=== PATIENT | male | born 1980 | race Caucasian/White ===

== ENCOUNTER 2021-05-04 09:49 | Emergency (ER) | payer BC ==
--- OUTSIDE RECORDS SUMMARY | 2021-05-04 09:52 | XMS REPORT | Continuity of Care Document ---
:1980 Author Organization [facility] t Address [address] [place] [address] Care Team Providers Name Role Phone Gee TEIXEIRA Primary Care Physician Unavailable Gee Teixeira Attending Clinician Unavailable Nurse, [facility] Attending Clinician Unavailable Ebravandana PRODUCT BUILDER Attending Clinician EBRAHIM Attending Clinician Unavailable Only, Db Test Attending Clinician Unavailable Mo CROCKER Attending Clinician [place] Attending Clinician Unavailable Hermann TAM Attending Clinician Unavailable Payers Payer Name Policy Type Policy Number Effective Date Expiration Date S ource Problems Condition Condition Condition Status Onset Resolution Last Treating Co mments Source Name Details Category Date Date Treatment Clinician Date No known No known Disease Unive rs active active ity of problems problems [facility] Allergies, Adverse Reactions, Alerts Allergy Allergy Status Severity Reaction(s) Onset Inactive Treating Comm ents Source Name Type Date Date Clinician NO KNOWN Drug Active Univers ALLERGIE Class ity of S [facility] Social History Social Habit Start Date Stop Date Quantity Comments Source Exposure to Not sure [facility] SARS-CoV-2 (event) Medica l Branch Tobacco use and 2018-10-27 2018-10-[address] [facility] exposure 00:00:00 00:00:00 [facility] Sex Assigned At [address] 1980 [facility] 00:00:00 00:00:00 [facility] Smoking Status Start Date Stop Date Source Never smoker [facility] Medications Ordered Filled Start Stop Current Ordering Indication Dosage Frequency Signature Comments Components Source Medication Medication Date Date Medication? Clinician (SIG) Name Name meclizine 2018- Yes [id number] 25mg Take 1 Univers (MEDI-MECLI 10-27 tablet by it y ross HORNER) 25 mg 00:00: mouth [place] tablet 00 every 4 Medical (four) Branch hours as needed for Dizziness or Nausea. meclizine 2019-0 Yes [id number] 25mg Take 1 Univers (MEDI-MECLI 10-27 tablet by it [place]) 25 mg 00:00: mouth [place] tablet 00 every 4 Medical (four) Branch hours as needed for Dizziness or Nausea. Immunizations Ordered Filled Immunization Date Status Comments [facility] e Immunization Name Name SARS-COV-2 COVID-19 2020-06-11 Completed Unive rsity of PFIZER VACCINE 00:00:00 [facility] SARS-COV-2 COVID-19 2020-06-11 Completed Unive rsity of PFIZER VACCINE 00:00:00 [facility] SARS-COV-2 COVID-19 2020-05-18 Completed Unive rsity of PFIZER VACCINE 00:00:00 [facility] SARS-COV-2 COVID-19 2020-05-18 Completed Unive rsity of PFIZER VACCINE 00:00:00 [facility] Vital Signs Vital Name Observation Time Observation Value Comments Source Systolic blood 2021-05-04 14:24:00 117 mm[Hg] Univer sity of pressure [facility] Diastolic blood 2021-05-04 14:24:00 84 mm[Hg] Unive rsity of pressure [facility] Heart rate 2021-05-04 14:24:00 77 /min [facility] Body temperature 2021-05-04 14:24:00 36.67 [facility] Res[facility] rate 2021-05-04 14:24:00 17 /min [facility] Body height 2021-05-04 14:24:00 177.8 cm [facility] Body weight 2021-05-04 14:24:00 92.109 kg [facility] BMI 2021-05-04 14:24:00 29.14 kg/m2 [facility] Oxygen saturation in 2021-05-04 14:24:00 99 /min [facility] Arterial blood by [facility] Pulse oximetry Branch Procedures This patient has no known procedures. Encounters Start End Encounter Admission Attending Care Care Encounter Source Date/Time Date/Time Type Type Clinicians Facility Department ID 2021-03-06 Outpatient Puneet, STLMLC STLMLC [id number] 14:04:51 [facility] [address] [facility] 2021-05-04 2021-05-04 Nurse Nurse, Joe [facility] [id number] Univers 09:15:00 09:35:00 Visit Luis King [facility] [id number] itgracie [facility] [id number] Joe as JOSELITO?BLEA [phone] [address] MEDICAL OFFICE [facility] 2021-05-04 2021-05-04 Outpatient R [facility] [id number] Univers 09:15:00 09:15:00 [id number] [facility] 2021-05-04 2021-05-04 Outpatient R [facility] [id number] Univers 09:15:00 09:15:00 LUIS [facility] 2021-03-02 2021-03-02 Laboratory Only, Ang Db Test [facility] [id number] Univers 10:45:00 11:00:00 Only Mo [facility] [id number] ity [facility] [id number] Joe as JOSELITO?BLEA [phone] [address] OFFICE [facility] 2021-03-02 2021-03-02 Outpatient R [facility] [id number] Univers 10:45:00 10:54:16 LEONEL [facility] 2021-03-02 2021-03-02 Outpatient R [facility] [id number] Univers 10:45:00 10:45:00 [id number] [facility] 2020-06-11 2020-06-11 [facility] [id number] Univers 08:40:00 08:40:00 LISA [facility] 2020-06-09 2020-06-09 Outpatient R [facility] [id number] Univers 14:20:00 14:20:00 [id number] [facility] 2020-06-09 2020-06-09 Outpatient R [facility] [id number] Univers 14:20:00 14:20:00 [facility] 2020-06-09 2020-06-09 [facility] [id number] Univers 11:50:00 11:50:00 [facility] 2020-06-09 2020-06-09 Outpatient [facility] [id number] Univers 11:45:00 11:45:00 [facility] 2020-06-08 2020-06-08 Outpatient YONATAN [facility] [id number] Univers 11:50:00 11:50:00 [facility] 2020-05-18 2020-05-18 Outpatient [facility] [id number] Univers 10:15:00 10:15:00 [facility] Results This patient has no known results.
[2021-05-04] MEDS ORDERED: KETOROLAC 30 MG/ML INJ ONE (10:28)
[2021-05-04] MEDS ORDERED: NA CHLORIDE 0.9% 1,000 ML ONE (10:28)
[2021-05-04] MEDS ORDERED: FAMOTIDINE 20 MG/2 ML VIAL IV ONE (10:28)
[2021-05-04 10:40] LABS: Absolute Lymphocytes (CBC) 1.3 K/uL (0.7-4.9); Hematocrit 43.7 % (39.6-49.0); Lymphocytes % 17.4 % (15.3-44.8); MPV 7.9 fL (7.6-11.3); RBC Red Blood Cell Count 4.91 M/uL (4.33-5.43)
[2021-05-04 10:56] LABS: ALT/SGPT 28 U/L (12-78); AST/SGOT 17 U/L (15-37); Albumin 3.9 g/dL (3.4-5.0); Alkaline Phosphatase 46 U/L (45-117); BUN Blood Urea Nitrogen 20 mg/dL (7-18); Bicarbonate 28 mmol/L (21-32); Bilirubin Total 0.3 mg/dL (0.2-1.0); Glucose Level 105 mg/dL (74-106); Lipase 97 U/L (73-393); Potassium 4.2 mmol/L (3.5-5.1); Protein, Total 7.8 g/dL (6.4-8.2); Sodium Level 139 mmol/L (136-145)
--- NOTE | 2021-05-04 11:11 | RAD REPORT ---
EXAM DESCRIPTION: CTAbdomen Pelvis W Contrast - 05/04/2021 11:00 am CLINICAL HISTORY: ABD PAIN COMPARISON: <Comparisons> TECHNIQUE: CT of the abdomen and pelvis was performed. All CT scans are performed using dose optimization technique as appropriate and may include automated exposure control or mA/KV adjustment according to patient size. FINDINGS: Lower chest: No acute abnormality. Liver: Miniscule low-density lesion in the right hepatic lobe on image 15, series 501 this too small to characterize, likely benign. Biliary: No biliary ductal dilatation. Stomach: No significant focal abnormality. Duodenum: No significant focal abnormality. Pancreas: No significant abnormality. Spleen: No significant abnormality. Adrenal: No suspicious lesions. Kidney/ureter: No hydronephrosis. No renal calculi. Retroperitoneum: No retroperitoneal adenopathy. Vascular: No aneurysm. Bowel: No significant focal abnormality. Normal appendix. Peritoneum: No ascites or free air. Bladder: Grossly unremarkable. Reproductive: No adnexal masses. Bones: No acute fracture. Other: n/a IMPRESSION: No acute intra-abdominal or pelvic finding. Normal appendix.
--- NOTE | 2021-05-04 11:15 | RAD REPORT ---
EXAM DESCRIPTION: US - Abdomen Exam Limited - 05/04/2021 11:08 am CLINICAL HISTORY: EPIGASTRIC PAIN COMPARISON: No comparisons FINDINGS: The gallbladder demonstrates no gallstones. No pericholecystic fluid or gallbladder wall t hickening. The common bile duct is normal measuring 3 mm. The liver demonstrates no findings of intrahepatic biliary dilatation. IMPRESSION: Unremarkable examination.
--- NOTE | 2021-05-04 11:34 | EDPHYS ---
Physician Documentation [facility] Name: Nhan Mcgovern Age: 40 yrs Sex: Male : 1980 Arrival Date: 05/04/2021 Time: 09:54 Bed 18 Private MD: ED Physician Clarence Brothers HPI: 05/04 10:22 This 40 yrs old Male presents to ER via Ambulatory with complaints of Abdominal Pain. pm1 10:22 The patient presents with abdominal pain in the epigastric area. Onset: The pm1 symptoms/episode began/occurred 2 day(s) ago. Associated signs and symptoms: none. Pertinent negatives: nausea, vomiting, and diarrhea, chest pain, shortness of breath. The symptoms are described as vague. Modifying factors: The symptoms are alleviated by the symptoms are aggravated by deep breathing while standing cause the pain to be worse. Severity of pain: in the emergency department the pain is a 3 / 10. The patient has not experienced similar symptoms in the past. The patient has been recently seen at an urgent care, today, for similar complaints, and was sent to the [facility] Emergency Department for further evaluation, for ultrasound of gallbadder. Historical: - Allergies: 10:03 No Known Allergies; ab2 - PMHx: 10:03 None; ab2 - PSHx: 10:03 None; ab2 - Immunization history:: Adult Immunizations up to date, Client reports receiving the 2nd dose of the Covid vaccine. - Social history:: Smoking status: Patient denies any tobacco usage or history of. ROS: 10:22 Constitutional: Negative for fever, chills, and weight loss, Cardiovascular: Negative pm1 for chest pain, palpitations, and edema, Respiratory: Negative for shortness of breath, cough, wheezing, and pleuritic chest pain. 10:22 Back: Negative for injury and pain, MS/Extremity: Negative for injury and deformity, Skin: Negative for injury, rash, and discoloration, Neuro: Negative for headache, weakness, numbness, tingling, and seizure. 10:22 Abdomen/GI: Positive for abdominal pain, of the epigastric area, Negative for nausea, vomiting, and diarrhea. 10:22 All other systems are negative. Exam: 10:22 Constitutional: This is a well developed, well nourished patient who is awake, alert, pm1 and in no acute distress. Head/Face: Normocephalic, atraumatic. 10:22 Back: No spinal tenderness. No costovertebral tenderness. Full range of motion. Skin: Warm, dry with normal turgor. Normal color with no rashes, no lesions, and no evidence of cellulitis. MS/ Extremity: Pulses equal, no cyanosis. Neurovascular intact. Full, normal range of motion. 10:22 Chest/axilla: Exam negative for acute changes, Inspection: normal, Palpation: is normal, no tenderness. 10:22 Cardiovascular: Exam negative for acute changes, Rate: normal, Rhythm: regular, Pulses: no pulse deficits are appreciated, Heart sounds: normal, normal S1and S2. 10:22 Respiratory: Exam negative for acute changes, respiratory distress, shortness of breath, Breath sounds: are clear throughout. 10:22 Abdomen/GI: Inspection: abdomen appears normal, Palpation: soft, in all quadrants, mild abdominal tenderness, in the epigastric area. 10:22 Neuro: Exam negative for acute changes, Orientation: is normal, Mentation: is normal, Motor: is normal, moves all fours. Vital Signs: 10:00 BP 134 / 77; Pulse 68; Resp 17; Temp 98.2(TE); Pulse Ox 99% on R/A; Weight 90.72 kg; ab2 Height 5 ft. 10 in. (177.80 cm); Pain 4/10; 11:35 BP 121 / 78; Pulse 56; Resp 16 S; Pulse Ox 98% on R/A; jd3 10:00 Body Mass Index 28.70 (90.72 kg, 177.80 cm) ab2 MDM: 10:08 Patient medically screened. christelle 10:40 Data reviewed: vital signs. Data interpreted: Pulse oximetry: on room air is 99 %. pm1 Interpretation: normal. 11:33 Counseling: I had a detailed discussion with the patient and/or guardian regarding: the pm1 historical points, exam findings, and any diagnostic results supporting the discharge/admit diagnosis, lab results, radiology results, the need for outpatient follow up, a family practitioner, to return to the emergency department if symptoms worsen or persist or if there are any questions or concerns that arise at home. 11:33 Special discussion: I discussed with the patient the need to follow-up with the pm1 PCP/specialist for the noted incidental finding on X-ray/CT scanning. follow up with GI and or PCP. 05/04 10:22 Order name: CBC with Diff; Complete Time: 10:44 pm1 05/04 10:22 Order name: CMP; Complete Time: 11:09 pm1 05/04 10:22 Order name: Lipase; Complete Time: 11:09 pm1 05/04 10:22 Order name: Abdomen Limited US; Complete Time: 11:24 pm1 05/04 10:22 Order name: CT Abd/Pelvis - IV Contrast Only; Complete Time: 11:14 pm1 05/04 10:22 Order name: IV Saline Lock; Complete Time: 10:30 pm1 05/04 10:22 Order name: Labs collected and sent; Complete Time: 10:30 pm1 Administered Medications: 10:30 Drug: NS 0.9% 1000 ml Route: IV; Rate: 1 bolus; Site: right forearm; jd3 11:30 Follow up: Response: No adverse reaction; IV Status: Completed infusion jd3 10:30 Drug: Pepcid (famotidine) 20 mg Route: IVP; Site: right forearm; jd3 11:30 Follow up: Response: No adverse reaction jd3 10:30 Drug: Ketorolac 30 mg Route: IVP; Site: right forearm; jd3 11:30 Follow up: Response: No adverse reaction jd3 Disposition Summary: 05/04/21 11:33 Discharge Ordered Location: Home pm1 Problem: new pm1 Symptoms: have improved pm1 Condition: Stable pm1 Diagnosis - Abdominal pain, unspecified pm1 Followup: pm1 - With: Emergency Department - When: As needed - Reason: Worsening of condition Followup: pm1 - With: Private Physician - When: 2 - 3 days - Reason: Recheck today's complaints, Continuance of care, Re-evaluation by your physician Discharge Instructions: - Discharge Summary Sheet pm1 - Abdominal Pain, Adult pm1 Forms: - Medication Reconciliation Form pm1 - Thank You Letter pm1 - Antibiotic Education pm1 - Prescription Opioid Use pm1 Prescriptions: - Pepcid 20 mg Oral Tablet - take 1 tablet by ORAL route every 12 hours for 10 days; 20 tablet; Refills: 0, pm1 Product Selection Permitted Addendum: 05/08/2021 07:03 Co-signature as Attending Physician, Clarence Brothers MD I agree with the assessment and c blanchard plan of care. Signatures: Dispatcher [employer] Clarence Elizabeth MD MD cha Marinas, Patrick, SHOT TUBE MACHINE TENDER SHOT TUBE MACHINE TENDER pm1 Yimi Gray RN RN jd3 Timo Smith2
--- NOTE | 2021-05-04 11:34 | ER ---
Nurse's Notes [facility] Name: Nhan Mcgovern Age: 40 yrs Sex: Male : 1980 Arrival Date: 05/04/2021 Time: 09:54 Bed 18 Private MD: Diagnosis: Abdominal pain, unspecified Presentation: 05/04 10:00 Chief complaint: Patient states: "For the past 2 days I have had upper abdominal pain ab2 and I get SOB. Standing makes the pain worse. It also hurts to touch the area. I went to the urgent care and they sent me here because they thought it was my gallbladder.". Coronavirus screen: Vaccine status: Patient reports receiving the 2nd dose of the covid vaccine. Client denies travel out of the [place] in the last 14 days. At this time, the client does not indicate any symptoms associated with coronavirus-19. Ebola Screen: Patient negative for fever greater than or equal to 101.5 degrees Fahrenheit, and additional compatible Ebola Virus Disease symptoms Patient denies exposure to infectious person. Patient denies travel to an Ebola-affected area in the 21 days before illness onset. No symptoms or risks identified at this time. Initial Sepsis Screen: Does the patient meet any 2 criteria? No. Patient's initial sepsis screen is negative. Does the patient have a suspected source of infection? No. Patient's initial sepsis screen is negative. Risk Assessment: Do you want to hurt yourself or someone else? Patient reports no desire to harm self or others. Onset of symptoms is unknown. 10:00 Method Of Arrival: Ambulatory ab2 10:00 Acuity: ZAFAR 3 ab2 Triage Assessment: 10:02 General: Appears in no apparent distress. comfortable, Behavior is calm, cooperative, ab2 appropriate for age. Pain: Complains of pain in epigastric area, right upper quadrant and left upper quadrant. Respiratory: Airway is patent Respiratory effort is even, unlabored, Respiratory pattern is regular, symmetrical. GI: Abdomen is tender to palpation in epigastric area, right upper quadrant and left upper quadrant Reports upper abdominal pain, Patient currently denies diarrhea, nausea, vomiting. Historical: - Allergies: 10:03 No Known Allergies; ab2 - PMHx: 10:03 None; ab2 - PSHx: 10:03 None; ab2 - Immunization history:: Adult Immunizations up to date, Client reports receiving the 2nd dose of the Covid vaccine. - Social history:: Smoking status: Patient denies any tobacco usage or history of. Screenin:32 Abuse screen: Denies threats or abuse. Nutritional screening: No deficits noted. jd3 Tuberculosis screening: No symptoms or risk factors identified. Fall Risk Ambulatory Aid- None/Bed Rest/Nurse Assist (0 pts). Gait- Normal/Bed Rest/Wheelchair (0 pts) Mental Status- Oriented to own ability (0 pts). Total Bautista Fall Scale indicates No Risk (0-24 pts). Assessment: 10:31 General: Appears in no apparent distress. comfortable, Behavior is calm, cooperative, jd3 appropriate for age. Pain: Complains of pain in abdomen and left upper quadrant and right upper quadrant and epigastric area Quality of pain is described as burning, tender. Neuro: Level of Consciousness is awake, alert, obeys commands, Oriented to person, place, time, situation. Cardiovascular: Denies chest pain, Capillary refill < 3 seconds Patient's skin is warm and dry. Respiratory: Reports shortness of breath with increased stomach pain Airway is patent Respiratory effort is even, unlabored, Respiratory pattern is regular, symmetrical. GI: Abdomen is non-distended, Abd is soft X 4 quads Abdomen is tender to palpation in epigastric area, right upper quadrant and left upper quadrant. : No signs and/or symptoms were reported regarding the genitourinary system. EENT: No signs and/or symptoms were reported regarding the EENT system. Derm: Skin is intact, Skin is dry, Skin is normal, Skin temperature is warm. Musculoskeletal: Circulation, motion, and sensation intact. Range of motion: intact in all extremities. 11:22 Reassessment: Patient appears in no apparent distress at this time. Patient and/or jd3 family updated on plan of care and expected duration. Pain level reassessed. Patient is alert, oriented x 3, equal unlabored respirations, skin warm/dry/pink. Patient states feeling better. Patient states symptoms have improved. 11:42 Reassessment: Patient appears in no apparent distress at this time. Patient and/or jd3 family updated on plan of care and expected duration. Pain level reassessed. Patient is alert, oriented x 3, equal unlabored respirations, skin warm/dry/pink. reported understanding of discharge instructions. even and steady gait upon discharge. Vital Signs: 10:00 BP 134 / 77; Pulse 68; Resp 17; Temp 98.2(TE); Pulse Ox 99% on R/A; Weight 90.72 kg; ab2 Height 5 ft. 10 in. (177.80 cm); Pain 4/10; 11:35 BP 121 / 78; Pulse 56; Resp 16 S; Pulse Ox 98% on R/A; jd3 10:00 Body Mass Index 28.70 (90.72 kg, 177.80 cm) ab2 ED Course: 09:54 Patient arrived in ED. rg4 10:02 Triage completed. ab2 10:03 Arm band placed on left wrist. ab2 10:06 Sid Centeno NP is PHCP. pm1 10:06 Clarence Brothers MD is Attending Physician. pm1 10:13 Yimi Gray RN is Primary Nurse. jd3 10:26 Initial lab(s) drawn, by ms, sent to lab. Inserted saline lock: 20 gauge in right dh3 forearm, using aseptic technique. Blood collected. 10:32 Patient has correct armband on for positive identification. Bed in low position. Call jd3 light in reach. Side rails up X 1. Pulse ox on. NIBP on. 11:02 CT Abd/Pelvis - IV Contrast Only In Process Unspecified. EDMS 11:09 Abdomen Limited US In Process Unspecified. EDMS 11:43 No provider procedures requiring assistance completed. IV discontinued, intact, jd3 bleeding controlled, No redness/swelling at site. Pressure dressing applied. Administered Medications: 10:30 Drug: NS 0.9% 1000 ml Route: IV; Rate: 1 bolus; Site: right forearm; jd3 11:30 Follow up: Response: No adverse reaction; IV Status: Completed infusion jd3 10:30 Drug: Pepcid (famotidine) 20 mg Route: IVP; Site: right forearm; jd3 11:30 Follow up: Response: No adverse reaction jd3 10:30 Drug: Ketorolac 30 mg Route: IVP; Site: right forearm; jd3 11:30 Follow up: Response: No adverse reaction jd3 Outcome: 11:33 Discharge ordered by . pm1 11:43 Discharged to home ambulatory. jd3 11:43 Condition: stable 11:43 Discharge instructions given to patient, Instructed on discharge instructions, follow up and referral plans. medication usage, Demonstrated understanding of instructions, follow-up care, medications, Prescriptions given X 1. 11:44 Patient left the ED. jd3 Signatures: Dispatcher [employer] EDMS Sid Centeno, MARSHA PAPER SORTER AND COUNTER pm1 Margaret Irizarry rg4 Janeth Rivas 3 Yimi Gray RN RN jd3 Timo Smith
[2021-05-04 11:50] VITALS: TEMP 98.2
[2021-05-04 11:51] VITALS: BP 121/78; O2SAT 98
== END 2021-05-04 11:44 | disposition home or self-care (01) ==
LOC: ER 09:49
DX: R10.13 Epigastric pain (principal)
CPT/HCPCS: 96361; 85025; 36415; 82565; 83690; 80053; 74177; 76705; 96375; 96374; 99284; Q9967; J7030